=== PATIENT | female | born 1975 | race African-American/Black ===

== ENCOUNTER → 2016-04-01 | Outpatient (CLI) | payer BC ==
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
--- NOTE | 2016-04-02 10:39 | WOMENS IMAGING REPORT ---
EXAM DESCRIPTION: RIGHT DIGITAL DIAGNOSTIC MAMMO; U/S BREAST UNILAT LIMITED COMPLETED DATE/TIME: 04/01/2016 8:33 am; 04/01/2016 8:54 am REASON FOR STUDY: N63 LUMP MASS; RT BREAST DENSITY N63 UNSPECIFIED LUMP IN BREAST COMPARISON: 03/20/2016 TECHNIQUE: Compression magnification craniocaudal and mediolateral oblique images of the breast kadi rded with digital acquisition. Additional right breast 90 mediolateral view and right breast ultrasound was performed. LIMITATIONS: None. FINDINGS: BREAST: Right MASSES: Persistent low-density well-circumscribed mammographic nodule right breast 9 o'clock position about 9 mm in diameter CALCIFICATIONS: No new or suspicious calcifications. ARCHITECTURAL DISTORTION: None. DEVELOPING DENSITY: None. ASYMMETRY: None noted. OTHER: No other significant findings. Read with the assistance of CAD. .[facility] - R2 Cenova Version 1.3 .[facility] Imaging - R2 Cenova Version 1.3 .[facility] Imaging - R2 Cenova Version 2.4 .[facility] - R2 Cenova Version 2.4 .[facility] - R2 Senior Business Analyst Version 9.2 Right breast ultrasound: In the right breast 9 o'clock position a well-circumscribed anechoic cyst with a single thin septatio n is present, measuring 9 x 4 mm. This correlates with the mammographic findings, and requires no fu rther specific followup BREAST DENSITY: b. There are scattered areas of fibroglandular density. BIRAD: 2 Benign findings. RECOMMENDATION: RECOMMENDED FOLLOW UP: Please continue bilateral screening mammography in February 28 017 SPECIFIC INTERVENTION/IMAGING/CONSULTATION RECOMMENDED:No additional intervention/ imaging/consultati on needed at this time. COMMUNICATION:Patient notified by letter COMMENT: PATIENT NOTIFIED BY LETTER. The [employer] (ACR) has developed recommendations for screening MRI of the breast s in certain patient populations, to be used in conjunction with mammography. Breast MRI surveillanc e may be appropriate for women with more than 20% lifetime risk of developing breast cancer as deter mined by genetic testing, significant family history of the disease, or history of mantle radiation f or Hodgkins Disease. ACR Practice Guidelines 2007. TECHNICAL DOCUMENTATION: FINDING NUMBER: (1) ASSESSMENT: (1) JOB ID: [id number] [employer]- All Rights Reserved
== END ==
LOC: WI 07:59
PROVIDERS: ATTEND Advanced Practice Midwife
DX: N63 Unspecified lump in breast (principal)
CPT/HCPCS: 76642

== ENCOUNTER 2016-09-12 18:17 | Emergency (ER) | payer OTHER, BC ==
[2016-09-12] MEDS ORDERED: ACETAMINOPHEN 325 MG TABLET PO ONE (20:17)
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
[2016-09-12 21:29] VITALS: BP 119/88
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
[2016-09-12] MEDS ORDERED: HYDROCODONE/ACETAMINOPHEN 5-325 MG 6 TAB/DSPK PO PRN (21:34)
== END 2016-09-12 21:48 | disposition home or self-care (01) ==
LOC: ER 18:17
DX: S16.1XXA Strain of muscle, fascia and tendon at neck level, initial encounter (principal); V89.2XXA Person injured in unspecified motor-vehicle accident, traffic, initial encounter; I10 Essential (primary) hypertension
CPT/HCPCS: 99283; 72125; L0120

== ENCOUNTER → 2017-04-30 | Outpatient (CLI) | payer BC ==
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
== END ==
LOC: WI 08:42
PROVIDERS: ATTEND Internal Medicine
DX: N60.01 Solitary cyst of right breast (principal)
CPT/HCPCS: 76642

== ENCOUNTER 2020-04-11 09:38 | Emergency (ER) | payer BC ==
[2020-04-11] MEDS ORDERED: ACETAMINOPHEN 325 MG TABLET PO ONE (12:01)
[2020-04-11] MEDS ORDERED: IBUPROFEN 600 MG TABLET PO ONE (12:04)
[2020-04-11 12:47] LABS: ABSOLUTE BASOPHILS # (AUTO) 0.1 10^3/uL (0.0-0.2); ABSOLUTE LYMPHOCYTES (AUTO) 1.7 10^3/uL (0.5-4.7); ABSOLUTE MONOCYTES (AUTO) 0.6 10^3/uL (0.1-1.4); ABSOLUTE NEUT (AUTO) 4.9 10^3/uL (1.7-8.2); BASOPHILS % (AUTO) 1.2 % (0-2); EOSINOPHILS % (AUTO) 0.5 % (0-6); HEMATOCRIT 34.1 % (36.0-47.0); LYMPHOCYTES % (AUTO) 23.5 % (13-45); MEAN CORPUSCULAR HEMOGLOBIN 29.7 pg (27.0-33.4); MEAN CORPUSCULAR HGB CONC 35.3 g/dL (32.0-36.0); MEAN CORPUSCULAR VOLUME 84 fl (80-97); PLATELET COUNT 497 10^3/uL (150-450); RED BLOOD COUNT 4.06 10^6/uL (3.72-5.28); RED CELL DISTRIBUTION WIDTH 13.3 % (11.5-14.0); SEGMENTED NEUTROPHILS % (AUTO) 66.8 % (42-78); TOTAL CELLS COUNTED % (AUTO) 100 %; WHITE BLOOD COUNT 7.3 10^3/uL (4.0-10.5)
[2020-04-11 13:16] LABS: CREATINE KINASE MB < 0.22 ng/mL (<4.55); TROPONIN I < 0.012 ng/mL
--- NOTE | 2020-04-11 13:20 | RADIOLOGY REPORT (SQ) ---
EXAM DESCRIPTION: CHEST 2 VIEWS IMAGES COMPLETED DATE/TIME: 04/11/2020 12:54 pm REASON FOR STUDY: Chest wall pain COMPARISON: 03/09/2020 EXAM PARAMETERS: NUMBER OF VIEWS: two views TECHNIQUE: Digital Frontal and Lateral radiographic views of the chest acquired. RADIATION DOSE: NA LIMITATIONS: none FINDINGS: LUNGS AND PLEURA: Diffuse bilateral ground-glass opacities. No effusions. MEDIASTINUM AND HILAR STRUCTURES: No masses or contour abnormalities. HEART AND VASCULAR STRUCTURES: Heart normal size. No evidence for failure. BONES: No acute findings. HARDWARE: None in the chest. OTHER: No other significant finding. IMPRESSION: Bilateral pneumonia. TECHNICAL DOCUMENTATION: JOB ID: [id number] 2010 [employer]- All Rights Reserved Reading location - IP/workstation name: [email or web address]
[2020-04-11 13:25] LABS: ERYTHROCYTE SEDIMENTATION RATE 96 mm/hr (0-20)
[2020-04-11 13:46] LABS: INTERNATIONAL RATION (INR) 1.09; PROTHROMBIN TIME 14.3 SEC (11.4-15.4)
[2020-04-11 14:12] LABS: ALBUMIN 4.1 g/dL (3.5-5.0); ALKALINE PHOSPHATASE 85 U/L (38-126); ANION GAP 10 (5-19); ASPARTATE AMINO TRANSFERASE 38 U/L (14-36); BILIRUBIN,DIRECT 0.3 mg/dL (0.0-0.4); BILIRUBIN,TOTAL 0.7 mg/dL (0.2-1.3); BLOOD UREA NITROGEN 15 mg/dL (7-20); CALCIUM 10.7 mg/dL (8.4-10.2); CARBON DIOXIDE 30 mmol/L (22-30); CHLORIDE 98 mmol/L (98-107); GLUCOSE 142 mg/dL (75-110); POTASSIUM 4.1 mmol/L (3.6-5.0); TOTAL PROTEIN 8.4 g/dL (6.3-8.2)
--- NOTE | 2020-04-11 14:29 | ER Document Report ---
ED General - General Mode of Arrival: Ambulatory Information source: Patient TRAVEL OUTSIDE OF THE [place] 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 She comes in with about a 2-week history of anterior chest wall pain radiating around to her mid thoracic back. She describes it as a spasming or twisting pain. This is present basically constantly. It is worse with movement or coughing. It is affected by position. It is not related to exertion and is not relieved by rest. She denies any fever or chills. She denies any real nausea. She was initially seen for similar symptoms in mid February 2020 so about 4 weeks ago now. Chest x-ray at that time showed a tiny left pleural effusion of unclear significance and no other diagnostic abnormalities were discovered. She underwent gallbladder ultrasound because her pain seem to be in the right upper quadrant and that was normal. She was then seen by gastroenterology and had upper and lower endoscopies. They found a polyp on her colonoscopy but otherwise found no abnormalities and had no explanation for her pain. She has been placed on Tylenol 3 which helps control her pain but she says it completely knocks her out and she cannot get anything done while she is taking the medication. She denies any cough. She has no shortness of breath. She has no fever or chills. She has no peripheral swelling. She denies any rashes. She is very frustrated and tired of being in pain all the time. (MELANIE AVERY) - Related Data Allergies/Adverse Reactions: diltiazem [From Cardizem] Allergy (Verified 09/12/16 18:40) nitrofurantoin [From Macrobid] Allergy (Verified 09/12/16 18:40) CITLALI Inhibitors Adverse Reaction (Verified 09/12/16 18:40) Past Medical History - Social History Smoking Status: Never Smoker Frequency of alcohol use: Rare Drug Abuse: None Family History: Reviewed & Not Pertinent Patient has homicidal ideation: No - Medical History Medical History: Other - Past Medical History Cardiac Medical History: Reports: Hx Hypertension Renal/ Medical History: Denies: Hx Peritoneal Dialysis Past Surgical History: Reports: Hx Section - X2 - Immunizations Hx Diphtheria, Pertussis, Tetanus Vaccination: Yes <MELANIE AVERY - Last Filed: 04/11/20 16:19> - Medical History Notes: Past medical history as documented electronic health record is reviewed. (MELANIE AVERY) Review of Systems <MELANIE AVERY - Last Filed: 04/11/20 16:19> - Review of Systems Notes: All other systems are reviewed and are negative or noncontributory except as noted the present illness. (MELANIE AVERY) Physical Exam <MELANIE AVERY - Last Filed: 04/11/20 16:19> - Vital signs Vitals: Temp Pulse Resp BP Pulse Ox 98.3 F 104 H 20 123/87 H 93 04/11/20 09:44 04/11/20 09:44 04/11/20 09:44 04/11/20 09:44 04/11/20 09:44 - Notes Notes: General: Well-developed well-nourished female, tearful at times, no acute distress. Obviously uncomfortable. Vital signs and nursing documentation are reviewed. HEENT: Grossly normal to inspection. Neck: Supple trachea midline no adenopathy. Chest: Normal configuration. Breast not examined. Costosternal joints are markedly tender bilaterally and reproduce the patient's pain. There is no crepitus or subcu edema. The patient's tenderness tracks around the lower ribs back to her mid thorax at about the T8 level. She has some point tenderness over the vertebrae there. There are no skin changes noted on either side. Heart: Regular rate and rhythm. No murmurs rubs or gallops. Abdomen: Patient's abdomen is distinctly nontender even along the costal margins. No other masses, organomegaly, tenderness, or guarding are noted. Back: Patient is tender to palpation in the T8-T9-T10 region. No crepitus step- off or fluctuance is noted. Extremities: Without clubbing cyanosis or edema. Negative Homans' sign bilaterally. Skin: Warm moist good turgor no rashes. Neuro: Alert and oriented x3. Cranial nerves intact. Gait and station were not tested. Strength and sensation are grossly within normal limits. (MELANIE AVERY) Course - Laboratory Results Result Diagrams: 04/11/20 12:30 04/11/20 12:30 <MELANIE AVERY - Last Filed: 04/11/20 16:19> - Laboratory Results Result Diagrams: 04/11/20 12:30 04/11/20 12:30 Critical Laboratory Results Reviewed: No Critical Results - Radiology Results Critical Radiology Results Reviewed: No Critical Results <RITA ANNE - Last Filed: 04/24/20 06:34> - Re-evaluation Re-evalutation: 04/11/20 14:29 Patient's chest x-ray showed bilateral atypical pneumonia consistent with possible Covid infection. This was considerably worse than her film 4 weeks ago . D-dimer was elevated as was her CRP and sed rate. CTA of the chest is pending at the time of this dictation. 04/11/20 16:19 At 4:15 PM the patient CTA of the chest was done but had not been read yet. I turned the case over to Dr. David Jewell at change of shift. She will follow up on the CTA results. We discussed disposition of this patient. At this point I do not believe that the patient requires admission unless she has a significant pulmonary embolism. Barring that I think she can be managed at home. Consideration will be given to sending her home with a Z-Tamir. Final disposition will be per Dr. David Jewell's prerogative. (MELANIE AVERY) - Vital Signs Vital signs: Temp Pulse Resp BP Pulse Ox 98.2 F 106 H 18 116/74 96 04/11/20 19:47 04/11/20 19:47 04/11/20 19:47 04/11/20 19:47 04/11/20 19:47 - Laboratory Results Laboratory Results Interpreted: 04/11/20 04/11/20 04/11/20 12:30 12:30 12:30 Hct 34.1 L Plt Count 497 H ESR 96 H D-Dimer 2.43 H Glucose Calcium Ferritin AST Lactate Dehydrogenase C-Reactive Protein 165.5 H Total Protein 04/11/20 12:30 Hct Plt Count ESR D-Dimer Glucose 142 H Calcium 10.7 H Ferritin 853.00 H AST 38 H Lactate Dehydrogenase 321 H C-Reactive Protein Total Protein 8.4 H Discharge <MELANIE AVERY - Last Filed: 04/11/20 16:19> <RITA ANNE - Last Filed: 04/24/20 06:34> - Discharge Clinical Impression: Suspected COVID-19 virus infection Back pain Qualifiers: Back pain location: thoracic back pain Chronicity: acute Back pain laterality: unspecified Qualified Code(s): M54.6 - Pain in thoracic spine Condition: Stable Disposition: HOME, SELF-CARE Instructions: COVID-19 Guidance for Persons Under Investigation, Oral Narcotic Medication ([facility]) Additional Instructions: You have been tested for COVID-19. Please self isolate until you are called with a negative result. You were seen by oncology in the ER today. They will call you for updates on future appointments and testing. If you do not hear from them by Thursday, please call their office at the number provided. Please return to the ER immediately for any worsening symptoms, shortness of breath, any other concerning signs. Prescriptions: Azithromycin [Zithromax 250 mg Tablet] 250 mg PO ASDIR PRN #6 tablet PRN Reason: Forms: Return to Work Referrals: DIMAS LAGUNAS MD [Primary Care Provider] - Follow up as needed ESTEFANIA CHAKRABORTY MD [ACTIVE STAFF] - Follow up in 3-5 days
--- NOTE | 2020-04-11 16:56 | RADIOLOGY REPORT (SQ) ---
EXAM DESCRIPTION: CTA CHEST IMAGES COMPLETED DATE/TIME: 04/11/2020 3:56 pm REASON FOR STUDY: Chest pain, elevated d-dimer, PUI COMPARISON: None. TECHNIQUE: CT scan of the chest performed using helical scanning technique with dynamic intravenous contrast injection. Images reviewed with lung, soft tissue and bone windows. Reconstructed coronal and sagittal MPR images reviewed. Additional 3 dimensional post-processing performed to develop Maximal Intensity Projection images (MT P). All images stored on PACS. All CT scanners at this facility use dose modulation, iterative reconstruction, and/or weight based d osing when appropriate to reduce radiation dose to as low as reasonably achievable (ALARA). [facility]: Dose Right [facility]: CareDose [facility]: Dose Right [facility]: Teradose 4D [facility]: [employer] CONTRAST TYPE AND DOSE: contrast/concentration: Isovue 350.00 mmol/ml; Total Contrast Delivered: 139 .8 ml; Total Saline Delivered: 89.7 ml Contrast bolus adequate for pulmonary arteries and aorta. RENAL FUNCTION: BUN 15 creatinine 0.62 RADIATION DOSE: CT Rad equipment meets quality standard of care and radiation dose reduction techniq ues were employed. CTDIvol: 13.2 - 26.4 mGy. DLP: 991 mGy-cm. . LIMITATIONS: None. FINDINGS: LUNGS AND PLEURA: There are small, subcentimeter sized pulmonary nodules that are too nume yusra to count. These are present diffusely in both lungs. There is a very small right pleural effus ion and minimal left pleural effusion. AORTA AND GREAT VESSELS: No aneurysm. No dissection. HEART: No pericardial effusion. No significant coronary artery calcifications. PULMONARY ARTERIES: No emboli visualized in the main pulmonary arteries or the segmental branches. HILAR AND MEDIASTINAL STRUCTURES: Mild left hilar adenopathy. HARDWARE: None in the chest. UPPER ABDOMEN: No significant findings. Limited exam. THYROID AND OTHER SOFT TISSUES: No masses. No adenopathy. BONES: There are some sclerotic osseous lesions and occasional lytic osseous lesion. 3D MIPS: Confirm above findings. OTHER: No other significant finding. IMPRESSION: 1. There is no pulmonary embolus. There is no aortic aneurysm or dissection. 2. There are numerous, diffusely distributed subcentimeter size pulmonary nodules. These are not ca lcified. This may represent diffuse metastatic disease to the lungs. Conceivably this could represe nt a granulomatous disease such as histoplasmosis. 3. There are sclerotic and lytic lesions in the spine and sternum concerning for metastatic disease to bone. 4. Recommend PET-CT. COMMENT: Quality ID # 436: Final reports with documentation of one or more dose reduction techniques (e.g., Automated exposure control, adjustment of the mA and/or kV according to patient size, use of iterative reconstruction technique) TECHNICAL DOCUMENTATION: JOB ID: [id number] 2010 [facility]- All Rights Reserved Reading location - IP/workstation name: [email or web address]
[2020-04-11] MEDS ORDERED: HYDROCODONE/ACETAMINOPHEN 5-325 MG TABLET PO ONE (17:39)
--- NOTE | 2020-04-11 17:59 | ER Document Report ---
Doctor's Note Notes: 04/11/20 17:58 Patient was signed out to me pending CT scan results. Patient CTA returned concerning for pulmonary nodules and lytic lesions concerning for metastasis. I did discuss with Dr. Emery from oncology who stated she will see her in the ER and do a consultation while she is here. I went in with the nurse to tell her the diagnosis. Patient became very tearful. I spent a significant amount of time comforting her and answering all her questions. Dr. Emery evaluated the patient in the ED. She has set up follow-up for her. I will discharge the patient with hydrocodone. She will also be given a Z-Tamir as she is still a PUI and Covid has not been ruled out. She was told to self isolate until she is called with a negative result. Patient's arrived to the ED. I have also went over all the instructions with him and the work-up that was done in the ED. He was very understanding and agreeable to the plan for follow-up. Patient's questions have all been answered. 04/11/20 21:40
--- NOTE | 2020-04-11 18:37 | PDOC CONSULTATION ---
Consultation Consult Date: 04/11/20 Provider Consulted: ESTEFANIA CHAKRABORTY Consult reason:: Hematology/Oncology consult was requested for patient with abnormal CT chest showing possible metastatic cancer. History of Present Illness Admission Date/PCP: DIMAS LAGUNAS MD History of Present Illness: NINOSKA LIANG is a 44 year old female who has a 2 month history of back and lower rib cage pain. She has been seeing chiropractor and urgent care and underwent prior X-rays which did not show any significant pathology. However, pain has progressed. No fevers, some dyspnea, no other concerning symptoms. Here in the ED, CXR showed possible pneumonia. D-dimer was elevated. CT-A to rule out PE showed no evidence of PE, but small pulmonary nodules and possible lytic lesions in spine and sternum. Patient has no prior history of cancer and there is no significant family history of cancer, other than lunger cancer in her father who smoked. Past Medical History Cardiac Medical History: Reports: Hypertension Past Surgical History Past Surgical History: Reports: Section - X2 Social History Smoking Status: Never Smoker Family History Family History: Reviewed & Not Pertinent Parental Family History Reviewed: Yes Children Family History Reviewed: No Sibling(s) Family History Reviewed.: Yes Medication/Allergy Home Medications: Multivit-Min69/Iron/Folic Acid [Ob Complete Caplet] 1 each PO DAILY 08/28/11 Nifedipine [Procardia XL 30 mg Tablet] 30 mg PO DAILY 11/08/11 Dicyclomine HCl [Bentyl 20 mg Tablet] 20 mg PO QID #120 tablet 06/30/13 Ondansetron [Zofran Odt 4 mg Tablet] 1 - 2 tab PO Q4H PRN #15 tab.rapdis 06/30/13 Cyclobenzaprine HCl [Flexeril 10 Mg Tablet] 10 mg PO TID #15 tablet 09/12/16 Hydrocodone/Acetaminophen [[place] 5-325 Tablet] 1 each PO Q4 PRN #15 tablet 09/12/16 Diazepam [Valium 5 mg Tablet] 5 mg PO TID PRN #12 tablet 03/10/20 Naproxen 500 mg PO BID PRN #14 tablet 03/10/20 Allergies/Adverse Reactions: diltiazem [From Cardizem] Allergy (Verified 09/12/16 18:40) nitrofurantoin [From Macrobid] Allergy (Verified 09/12/16 18:40) CILTALI Inhibitors Adverse Reaction (Verified 09/12/16 18:40) Review of Systems Constitutional: ABSENT: fever(s) Eyes: ABSENT: visual disturbances Ears: ABSENT: hearing changes Nose, Mouth, and Throat: ABSENT: sore throat Cardiovascular: PRESENT: chest pain, dyspnea on exertion Gastrointestinal: ABSENT: constipation, nausea Genitourinary: ABSENT: dysuria Neurological: PRESENT: weakness Hematologic/Lymphatic: ABSENT: easy bleeding Physical Exam Vital Signs: Temp Pulse Resp BP Pulse Ox 98.6 F 80 16 124/73 95 04/11/20 15:03 04/11/20 15:03 04/11/20 15:03 04/11/20 15:03 04/11/20 15:03 Intake & Output 04/10/20 04/11/20 04/12/20 06:59 06:59 06:59 Weight 66 kg General appearance: PRESENT: no acute distress Head exam: PRESENT: normocephalic Eye exam: PRESENT: EOMI, PERRLA Mouth exam: PRESENT: moist, tongue midline Respiratory exam: PRESENT: unlabored GI/Abdominal exam: ABSENT: distended Extremities exam: ABSENT: pedal edema Musculoskeletal exam: PRESENT: normal inspection Neurological exam: PRESENT: alert, awake, oriented to person, oriented to place, oriented to time, oriented to situation Psychiatric exam: PRESENT: appropriate affect Skin exam: PRESENT: normal color Results Laboratory Results: 04/11/20 12:30 04/11/20 12:30 04/11/20 04/11/20 04/11/20 12:30 12:30 12:30 WBC 7.3 RBC 4.06 Hgb 12.0 Hct 34.1 L MCV 84 MCH 29.7 MCHC 35.3 RDW 13.3 Plt Count 497 H Seg Neutrophils % 66.8 Sodium 138.1 Potassium 4.1 Chloride 98 Carbon Dioxide 30 Anion Gap 10 BUN 15 Creatinine 0.62 Est GFR ( Amer) > 60 Glucose 142 H Calcium 10.7 H Ferritin 853.00 H Total Bilirubin 0.7 AST 38 H Alkaline Phosphatase 85 C-Reactive Protein 165.5 H Total Protein 8.4 H Albumin 4.1 04/11/20 12:30 CK-MB (CK-2) < 0.22 Troponin I < 0.012 Impressions: Chest X-Ray 04/11/20 12:03 IMPRESSION: Bilateral pneumonia. Chest/Abdomen CTA 04/11/20 13:30 IMPRESSION: 1. There is no pulmonary embolus. There is no aortic aneurysm or dissection. 2. There are numerous, diffusely distributed subcentimeter size pulmonary nodu les. These are not calcified. This may represent diffuse metastatic disease to the lungs. Conceivably this could represent a granulomatous disease such as histoplasmosis. 3. There are sclerotic and lytic lesions in the spine and sternum concerning for metastatic disease to bone. 4. Recommend PET-CT. Status: Image reviewed by me Assessment & Plan - Diagnosis (1) Pulmonary nodules/lesions, multiple Is this a current diagnosis for this admission?: Yes Plan: I have explained to the patient that although her scans are very concerning for cancer, I am not sure that this is the case. I would recommend CT A/P and bone scan to see if there is a suitable lesion for biopsy. She has had mammogram, colonoscopy, and EGD within the last year with no obvious pathology. I will also check CA19-9 and CEA levels. She has been tested for COVID-19 and this will take a few days to get back. She will self-isolate until her COVID test is negative. I will arrange for CT and bone scans as outpatient early next week. Based on these results, biopsy will be obtained. I will follow her closely as outpatient. I see no indication for admission. She will use [place], etc for pain as outpatient over the next few days. I have asked her not to follow with chiropractor until further information is available. - Time Time Spent: Greater than 70 Minutes
[2020-04-11] MEDS ORDERED: HYDROCODONE/ACETAMINOPHEN 5-325 MG (6 TAB/ER DISP) PO PRN (18:57)
[2020-04-11 19:58] VITALS: BP 116/74
== END 2020-04-11 20:30 | disposition home or self-care (01) ==
LOC: ER 09:38
DX: M54.6 Pain in thoracic spine (principal); J18.9 Pneumonia, unspecified organism; R07.89 Other chest pain; R91.8 Other nonspecific abnormal finding of lung field; R79.89 Other specified abnormal findings of blood chemistry; I10 Essential (primary) hypertension; Z79.899 Other long term (current) drug therapy; Z88.8 Allergy status to other drugs, medicaments and biological substances; Z88.1 Allergy status to other antibiotic agents; Z80.1 Family history of malignant neoplasm of trachea, bronchus and lung; Z20.822 Contact with and (suspected) exposure to COVID-19
CPT/HCPCS: 99285; 36415; 86301; 82553; 82378; 82728; 83615; 85025; 85652; 85610; 85730; 86140; 80053; 84484; 85379; 71046; 71275; U0003; C9803; 87635

== ENCOUNTER → 2020-04-20 | Outpatient (CLI) | payer BC ==
--- NOTE | 2020-04-20 13:29 | RADIOLOGY REPORT (SQ) ---
EXAM DESCRIPTION: CT ABD/PELVIS WITH IV ORAL IMAGES COMPLETED DATE/TIME: 04/20/2020 10:13 am REASON FOR STUDY: DISORDER OF BONE M89.9 DISORDER OF BONE, UNSPECIFIED R91.1 SOLITARY PULMONARY NO DULE R10.9 UNSPECIFIED ABDOMINAL PAIN COMPARISON: CT of the chest from 04/11/2020. TECHNIQUE: CT scan of the abdomen and pelvis performed using helical scanning technique with dynamic intravenous contrast injection. No oral contrast. Images reviewed with lung, soft tissue, and bone windows. Reconstructed coronal and sagittal MPR images reviewed. Delayed images for evaluation of the urinary system also acquired. All images stored on PACS. All CT scanners at this facility use dose modulation, iterative reconstruction, and/or weight based d osing when appropriate to reduce radiation dose to as low as reasonably achievable (ALARA). [facility]: Dose Right [facility]: CareDose [facility]: Dose Right [facility]: Teradose 4D [facility]: [employer] CONTRAST TYPE AND DOSE: Contrast/concentration: Isovue 350.00 mmol/ml; Total Contrast Delivered: 72. 0 ml; Total Saline Delivered: 40.0 ml RENAL FUNCTION: GFR > 60 RADIATION DOSE: CT Rad equipment meets quality standard of care and radiation dose reduction technRidango ues were employed. CTDIvol: 5.1 - 5.2 mGy. DLP: 503 mGy-cm. LIMITATIONS: None. FINDINGS: LOWER CHEST: See separate report of the CT of the chest from 04/11/2020. LIVER: The morphology of the liver is noncirrhotic. There are 2 hypodense lesions in the left hepati c lobe that measure 18 x 17 mm (image 20 of series 2) and 12 x 11 mm (image 21 of series 2) respectiv anastasiia. The portal veins are patent. SPLEEN: No splenomegaly or splenic mass. PANCREAS: No acute gross abnormality of the pancreas. GALLBLADDER: No acute gross abnormality of the gallbladder. ADRENAL GLANDS: No mass or asymmetry. RIGHT KIDNEY AND URETER: There is a heterogeneous exophytic mass that arises from the posterior sekou x of the kidney and measures 6.5 cm in AP diameter, 5.4 cm in transverse diameter and 6.5 cm in crani ocaudal diameter ; the lesion extends into the renal sinus. There is no associated hydronephrosis, n ephrolithiasis, hydroureter or ureterolithiasis. LEFT KIDNEY AND URETER: No solid mass, hydronephrosis, nephrolithiasis, hydroureter or ureterolithias is. AORTA AND VESSELS: No aneurysm or dissection of the abdominal aorta. The IVC and renal veins are pat ent ; there is no tumor thrombus. RETROPERITONEUM: No retroperitoneal adenopathy, hemorrhage or mass. BOWEL AND PERITONEAL CAVITY: Hiatal hernia. There is no bowel obstruction, bowel wall thickening or pericolonic/ perienteric inflammation. There is no mesenteric adenopathy, free intraperitoneal fluid or mesenteric/ omental inflammation. APPENDIX: Unable to identify the appendix. PELVIS: The 17 x 15 mm low-attenuation lesion in the left adnexum could represent an ovarian cyst or follicle. There is no abnormality of the uterus or adnexa that is apparent on CT. The urinary bladd er is distended and normal in appearance. ABDOMINAL WALL: Fat-containing umbilical hernia. BONES: There are innumerable mixed lytic and sclerotic lesions ; for reference these include the scle rotic lesion within the proximal left femur (image 80 of series 2) ended lytic lesion within S1 (imag e 35 of series 602). OTHER: Phleboliths in the right gonadal vein. IMPRESSION: 1. Heterogeneous mass in the right kidney that measures 6.5 cm in AP diameter, 5.4 cm in transverse diameter and 6.5 cm in craniocaudal diameter concerning for a renal cell carcinoma. Ther e is no tumor thrombus in the renal vein and IVC. 2. Hypodense lesions in the left lobe of the liver concerning for metastases. 3. Mixed lytic and sclerotic metastatic osseous lesions. TECHNICAL DOCUMENTATION: JOB ID: [id number] Quality ID # 436: Final reports with documentation of one or more dose reduction techniques (e.g., Au tomated exposure control, adjustment of the mA and/or kV according to patient size, use of iterative reconstruction technique) 2010 [employer]- All Rights Reserved Reading location - IP/workstation name: [email or web address]
--- NOTE | 2020-04-20 16:55 | RADIOLOGY REPORT (SQ) ---
EXAM DESCRIPTION: NM WHOLE BODY BONE SCAN IMAGES COMPLETED DATE/TIME: 04/20/2020 1:41 pm REASON FOR STUDY: DISORDER OF BONE M89.9 DISORDER OF BONE, UNSPECIFIED R91.1 SOLITARY PULMONARY NO DULE R10.9 UNSPECIFIED ABDOMINAL PAIN COMPARISON: 04/20/2019 and 04/11/2020 RADIONUCLIDE AND DOSE: 20.8 millicuries Tc99m MDP. The route of agent administration: Intravenous. ADDITIONAL DRUGS AND DOSES: None. TECHNIQUE: Routine delayed images at 3 hour post radionuclide injection acquired of the bony skeleto n including anterior and posterior torso projections ; the patient was unable to tolerate positioning for whole body scan. LIMITATIONS: Patient discomfort limits examination to torso imaging only. FINDINGS: BONES: Markedly heterogeneous activity with multiple foci of intense radiotracer activity localizing predominantly to the spine, pelvis, and sternum, correlating to mixed lytic and sclerotic foci demonstrated on comparison CT imaging. Additional foci are seen of the right scapular spine, ri ght proximal femoral diaphysis, left proximal femoral metaphysis and left parietal calvarium. KIDNEYS: Asymmetric uptake correlating to a large right renal mass demonstrated on comparison CT imag ing. No evidence of urinary obstruction. OTHER: No other significant finding. IMPRESSION: Examination limited to torso due to patient's discomfort with whole-body positioning. D iffuse foci of intense radiotracer activity correlate to mixed lytic and sclerotic lesions seen throu ghout the axial skeleton and proximal extremities as demonstrated on comparison CT imaging. Addition al foci are seen within the right proximal femoral diaphysis (not included in the imaged field of vie w on comparison imaging) and left parietal calvarium. COMMENT: Quality measure 147: Current bone scan is compared with any available plain radiographs, p rior bone scans, and CT/MRI. TECHNICAL DOCUMENTATION: JOB ID: [id number] 2010 [employer]- All Rights Reserved Reading location - IP/workstation name: [email or web address]
== END ==
LOC: RAD 09:41
PROVIDERS: ATTEND Internal Medicine Hematology & Oncology
DX: M89.9 Disorder of bone, unspecified (principal); R91.1 Solitary pulmonary nodule; R10.9 Unspecified abdominal pain; N28.89 Other specified disorders of kidney and ureter; K76.9 Liver disease, unspecified; K44.9 Diaphragmatic hernia without obstruction or gangrene; K42.9 Umbilical hernia without obstruction or gangrene
CPT/HCPCS: 78306; 74177; A9503; Q9969